=== PATIENT | female | born 1950 | race Caucasian/White ===

== ENCOUNTER 2023-04-19 18:13 | Inpatient (IN) ==
[2023-04-19] MEDS ORDERED: SODIUM CHLORIDE 1,000 ML IV STA (18:55)
--- NOTE | 2023-04-19 18:55 | ED.PDOC ---
General ED Provider: Dr. CHITRA PATEL MD Chief Complaint: Altered Mental Status Stated Complaint: Patient with history of Alzheimer's, type 2 diabetes, recently placed in a [facility] has had very poor oral intake the past 3 days. Patient has a history of fall yesterday and was eval emergency room for negative head CT scan. Patient has not been lethargic. No history of coughing, fever, nausea, vomiting. Family states that patient's had very poor urine output Time Seen by Provider: 04/19/23 18:54 Information Source: Patient Exam Limitations: Clinical condition, Dementia and Altered mental status Primary Care Provider: GREGOR IZQUIERDO Nursing and Triage Documentation Reviewed and Agree: Yes Review of Systems Review Of Systems Constitutional: Reports Weakness Eyes: Reports No symptoms Ears, Nose, Mouth, Throat: Reports No symptoms Respiratory: Reports No symptoms Cardiac: Reports No symptoms GI: Reports No symptoms : Reports No symptoms Musculoskeletal: Reports No symptoms Neurological: Reports Cognitive dysfunction and Weakness Endocrine: Reports No symptoms All Other Systems: Reviewed and Negative [facility] Medical History Type 2 diabetes mellitus without complications E11.9 - Type 2 diabetes mellitus without complications (ICD-10) Personal history of malignant neoplasm of breast Z85.3 - Personal history of malignant neoplasm of breast (ICD-10) Major depressive disorder, single episode, unspecified F32.9 - Major depressive disorder, single episode, unspecified (ICD-10) Dementia in other diseases classified elsewhere, severe, with other behavioral disturbance F02.C18 - Dementia in other diseases classified elsewhere, severe, with other behavioral disturbance (ICD-10) Anxiety disorder, unspecified F41.9 - Anxiety disorder, unspecified (ICD-10) Age-related physical debility R54 - Age-related physical debility (ICD-10) Repeated falls R29.6 - Repeated falls (ICD-10) 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9 - Gastro-esophageal reflux disease without esophagitis (ICD-10) History of seasonal allergies Z88.9 - Allergy status to unspecified drugs, medicaments and biological substances status (ICD-10) Surgical History Status post hysterectomy Z90.710 - Acquired absence of both cervix and uterus (ICD-10) Female Reproductive History Menstrual Hx Hysterectomy: Yes Hx Tubal Ligation: No Physical Exam Physical Exam Appearance: Reports Ill-appearing Ill-appearing: Mild Pain Distress: None Eyes: Reports JARAD and EOMI ENT: Reports Ears normal, Nose normal and Other (There is dry oral mucosa) Neck: Supple Respiratory: Reports Airway patent and Breath sounds clear Cardiovascular: Reports RRR and Tachycardia GI/: Reports Soft and Nontender Musculoskeletal: Reports Normal strength Skin: Reports Warm Neurological: Reports Sensation intact, Motor intact and Reflexes intact Psychiatric: Reports Affect appropriate, Mood appropriate and Not Examined (Patient appears lethargic but responds to verbal stimuli.) Interpretation EKG Interpretation EKG Interpretation By: ED Physician Time of EKG #1: 19:03 Rate: Normal Rhythm: Sinus Ectopy: None Interpretation: There is T wave inversion in inferior anterior septal laterally Radiology Interpretation Radiology Interpretation By: Radiologist Radiology Results: Negative Exam Interpreted: CXR Radiology Interpretation By: Radiologist Exam Interpreted: CT Scan Xray Comments: The head CT scan shows no acute intracranial abnormality Critical Care Note Critical Care Note Total Critical Care Time (mins): 0 Course Course 04/19/23 19:30 04/19/23 19:30 Orders, Labs, Meds: Lab Review 04/19/23 04/19/23 04/19/23 19:30 19:38 20:25 WBC 11.58 H RBC 5.32 Hgb 16.8 H Hct 49.3 H MCV 92.7 MCH 31.6 H MCHC 34.1 RDW Coeff of Jimbo 13.5 Plt Count 267 Immature Gran % (Auto) 0.8 Neut % (Auto) 80.0 H Lymph % (Auto) 14.9 [place] % (Auto) 3.8 Eos % (Auto) 0.1 Baso % (Auto) 0.4 Neut # (Auto) 9.3 H Lymph # (Auto) 1.7 [place] # (Auto) 0.4 Eos # (Auto) 0.0 Baso # (Auto) 0.1 Immature Gran # (Auto) 0.1 Sodium 138.4 Potassium 3.99 Chloride 101.3 Carbon Dioxide 18.0 L Anion Gap 23.09 BUN 18.0 H Creatinine 1.25 Estimated GFR (MDRD) 42.00 BUN/Creatinine Ratio 14.40 Glucose 214.5 H Calcium 10.72 H Magnesium 2.22 Total Bilirubin 1.35 H AST 37.4 H ALT 34.6 Alkaline Phosphatase 75.7 Troponin I < 0.012 Total Protein 9.69 H Albumin 5.18 H Globulin 4.51 Albumin/Globulin Ratio 1.14 Urine Color Dark Urine Clarity Clear Urine pH 6.0 Ur Specific [place] >=1.030 Urine Protein 3+ H Urine Glucose (UA) Negative Urine Ketones 3+ H Urine Blood Trace-intact H Urine Nitrite Negative Urine Bilirubin 2+ H Urine Urobilinogen 0.2 Ur Leukocyte Esterase Negative Urine Microscopic RBC 5-10 Urine Microscopic WBC 0-2 Ur Squamous Epith Cells Not present Ur Renal Epithelial Cell 0-2 Triple Phos Crystals Trace Amorphous Sediment Trace Urine Bacteria 1+ Hyaline Casts 5-10 Fine Granular Casts 2-5 Urine Yeast 2+ SARS CoV-2 RNA Rapid JOCE Negative Orders Category Date Time Status ADMIT PATIENT INPATIENT .TO [facility] (MONITORED BED) ADMISSION 04/19/23 21:23 Active EKG-(ED ONLY) Stat CARDIO 04/19/23 18:57 Completed ACCUCHECK (MED/SURG, SCU) [BLOOD GLUCOSE MONITORING ( CARE 04/19/23 21:23 Active MED/SURG)] Q4HR ACTIVITY .Up With Assistance CARE 04/19/23 21:23 Active INTAKE & OUTPUT Q8HR CARE 04/19/23 21:23 Active TELEMETRY MONITORING TELE CARE 04/19/23 21:23 Active VITAL SIGNS Q4HR CARE 04/19/23 21:24 Active NOTHING BY MOUTH DIETARY 04/20/23 Breakfast Ordered CBC W/ AUTO DIFF DAILY@0600 LAB 04/20/23 06:00 Ordered CBC W/ AUTO DIFF DAILY@0600 LAB 04/21/23 06:00 Ordered CBC W/ AUTO DIFF Stat LAB 04/19/23 19:30 Completed CMP [COMPREHENSIVE METABOLIC PANEL] Stat LAB 04/19/23 19:30 Completed COMPREHENSIVE METABOLIC PANEL DAILY@0600 LAB 04/20/23 06:00 Ordered COMPREHENSIVE METABOLIC PANEL DAILY@0600 LAB 04/21/23 06:00 Ordered COVID [SARS COV-2 RNA RAPID JOCE] Stat LAB 04/19/23 19:38 Completed MAGNESIUM Stat LAB 04/19/23 19:30 Completed TROPONIN I Stat LAB 04/19/23 19:30 Completed URINALYSIS C & S IF INDICATED Stat LAB 04/19/23 20:25 Completed URINE CULTURE Stat LAB 04/19/23 20:25 Received Acetaminophen [Tylenol] Meds 04/19/23 21:23 Ordered 650 mg PO Q4H PRN Dextrose 5 %-0.45 % NaCl [Dextrose 5%-1/2Ns IV Solution Meds 04/19/23 21:30 Ordered ] 1,000 ml IV 100 mls/hr Insulin Lispro [Humalog] Meds 04/19/23 21:23 Ordered See Protocol SUBCUT PRN PRN Ondansetron HCl/Pf [Zofran 4 mg/2 ml] Meds 04/19/23 21:23 Ordered 4 mg IVP Q6H PRN Sodium Chloride 0.9% [Sodium Chloride] 1,000 ml Meds 04/19/23 18:55 Discontinued IV BOLUS CHEST, 1V AP ONLY Stat RADS 04/19/23 18:[address] HEAD W/O CONTRAST Stat RADS 04/19/23 20:44 Completed Medications Generic Name Dose Route Start Last Admin Trade Name Freq PRN Reason Stop Dose Admin Acetaminophen 650 mg 04/19/23 21:23 Acetaminophen 325 Mg Tablet PO Q4H PRN Mild Pain Dextrose/Sodium Chloride 1,000 mls @ 100 mls/hr 04/19/23 21:30 Dextrose 5%-1/2ns Iv Solution IV .Q10H ALCIDES Insulin Human Lispro 0 unit 04/19/23 21:23 Insulin Lispro 100 Unit/Ml (3 Ml) Vial SUBCUT PRN PRN Hyperglycemia Protocol Ondansetron HCl 4 mg 04/19/23 21:23 Ondansetron Hcl/Pf 4 Mg/2 Ml Sdv IVP Q6H PRN Nausea / Vomiting Discontinued Medications Generic Name Dose Route Start Last Admin Trade Name Freq PRN Reason Stop Dose Admin Sodium Chloride 1,000 mls @ 500 mls/hr 04/19/23 18:55 04/19/23 20:12 Sodium Chloride IV 04/19/23 20:54 500 mls/hr BOLUS STA Administration Vital Signs: Temp Pulse Resp BP Pulse Ox 04/19/23 18:30 97.6 F 98 16 127/89 99 Discharge Plan Discharge Patient Disposition: ADMITTED INPATIENT Discharge Problem: Altered mental status, Acute dehydration Prescriptions: No Action donepezil 5 mg tablet 5 mg PO BEDTIME escitalopram oxalate 10 mg tablet 10 mg PO DAILY metformin 500 mg tablet 500 mg PO TID Januvia 50 mg tablet 50 mg PO DAILY trazodone 50 mg tablet 25 mg PO BEDTIME cholecalciferol (vitamin D3) 25 mcg (1,000 unit) capsule 25 mcg PO DAILY Trulicity 0.75 mg/0.5 mL pen injector 0.75 mg subcut WEEKLY Did you review [place] [employer] for ALL controlled substances?: No ED Provider: CHITRA PATEL Physician Progress Note: History obtained from the family and the patient. Patient recently [facility] has very poor oral intake has became lethargic throughout the day and has very poor feedings. Patient fell yesterday and was evaluated emergency room for negative head CT scan. Laboratory data today urinalysis with 3+ ketones, specific gravity 1.03, CBC with a white blood cell count of 11,500, hemoglobin 16.8, GFR today was 42 compared to GFR 53 yesterday. Urinalysis negative Patient given a liter bolus normal saline at 500 mL/h x 2. Discussed with hospitalist Gertrudis Doe at 2044 for inpatient admission Differential diagnosis: 1) altered mental status 2) dehydration []
[2023-04-19 19:34] LABS: BASOPHILS # (AUTO) 0.1 K/uL (0-0.2); BASOPHILS % (AUTO) 0.4 % (0.0-3.0); EOSINOPHILS % (AUTO) 0.1 % (0.0-7.0); HEMATOCRIT 49.3 % (37.0-47.0); HEMOGLOBIN 16.8 g/dl (12.0-16.0); IMMATURE GRANULOCYTE # (AUTO) 0.1 (0.0-1.0); IMMATURE GRANULOCYTE % (AUTO) 0.8 % (0.0-5.0); LYMPHOCYTES # (AUTO) 1.7 K/uL (0.60-3.4); LYMPHOCYTES % (AUTO) 14.9 (10.0-50.0); MEAN CORPUSCULAR HEMOGLOBIN 31.6 pg (27.0-31.0); MEAN CORPUSCULAR HGB CONC 34.1 (31.8-35.4); MEAN CORPUSCULAR VOLUME 92.7 fl (81.0-99.0); MONOCYTES # (AUTO) 0.4 K/uL (0.4-2.0); MONOCYTES % (AUTO) 3.8 (0-10); NEUTROPHILS # (AUTO) 9.3 K/ul (2.0-6.9); PLATELET COUNT 267 10^3/uL (140-440); RDW COEFFICIENT OF VARIATION 13.5 % (11.6-14.8); RED BLOOD COUNT 5.32 10^6/ul (4.20-5.40); WHITE BLOOD COUNT 11.58 K/ul (4.6-10.2)
[2023-04-19 19:46] LABS: ALANINE AMINOTRANSFERASE 34.6 U/L (0-35); ALBUMIN 5.18 g/dL (3.5-5.0); ALKALINE PHOSPHATASE 75.7 U/L (53-141); ASPARTATE AMINO TRANSFERASE 37.4 U/L (14-36); BILIRUBIN,TOTAL 1.35 mg/dL (0.2-1.3); CALCIUM 10.72 mg/dL (8.4-10.2); CHLORIDE 101.3 mmol/L (98-107); CREATININE 1.25 mg/dL (0.60-1.30); GLUCOSE 214.5 mg/dL (74-106); MAGNESIUM 2.22 mg/dL (1.6-2.3); POTASSIUM 3.99 mmol/L (3.5-5.1); SODIUM 138.4 mmol/L (134.5-145); TOTAL PROTEIN 9.69 g/dL (6.3-8.2)
[2023-04-19 19:58] LABS: TROPONIN I < 0.012 ng/ml (0.0000-0.120)
[2023-04-19 19:59] LABS: SARS COV-2 RNA RAPID NAAT NEGATIVE (NEGATIVE)
--- NOTE | 2023-04-19 20:09 | DI ---
EXAM: CHEST RADIOGRAPH (1 VIEW) TECHNIQUE: Frontal Chest Radiograph. HISTORY: Cough COMPARISON: None. FINDINGS: Lines, Tubes, Devices: None Lungs and Pleura: No focal consolidation. No pleural effusion. No pneumothorax. Cardiac silhouette: Normal. Bones: No acute abnormality. IMPRESSION: No acute radiographic abnormality. If symptoms persist, follow-up imaging is recommended.
[2023-04-19 20:30] LABS: BILIRUBIN,URINE 2+ (NEGATIVE); CLARITY,URINE Clear (CLEAR); COLOR,URINE Dark (YELLOW); GLUCOSE, URINE (UA) Negative (NEGATIVE); KETONES,URINE 3+ (NEGATIVE); LEUKOCYTE ESTERASE ,URINE Negative (NEGATIVE); NITRITE,URINE Negative (NEGATIVE); PROTEIN,URINE 3+ (NEGATIVE); URINE, BLOOD Trace-intact (NEGATIVE); UROBILINOGEN,URINE 0.2 (0.2)
[2023-04-19 20:32] LABS: SQUAMOUS EPITHELIAL CELL,UR NOT PRESENT (0-5)
[2023-04-19 20:46] LABS: AMORPHOUS SEDIMENT,UR TRACE (NOT PRESENT); BACTERIA,URINE 1+ (NOT PRESENT); RENAL EPITHELIAL CELLS,URINE 0-2 (NOT PRESENT); TRIPLE PHOSPHATE CRYSTAL,UR TRACE (NOT PRESENT); URINE WBC, MICROSCOPIC 0-2 (0-2); YEAST,URINE 2+ (NOT PRESENT)
--- NOTE | 2023-04-19 21:22 | CT ---
EXAMINATION: HEAD CT WITHOUT CONTRAST HISTORY: Altered mental status. TECHNIQUE: Noncontrast CT of the brain was performed with images acquired from skull base to vertex. 2-D coronal and sagittal reformatted images were obtained from the axial source images. Contrast Dose: None. CT Dose Reduction Techniques Performed: Yes. COMPARISON: 04/18/2023 FINDINGS: There is mild atrophy. There is chronic periventricular small vessel ischemic disease. There are no masses, mass effect or midline shift. There is no evidence for intracranial hemorrhage or acute cer ebral or cerebellar infarction. There are no extra-axial fluid collections or subdural hematomas. T here are no cerebral contusions and there are no skull fractures. The visualized portions of the para nasal sinuses and mastoid air cells are clear. IMPRESSION: 1. Atrophy and senescent changes. No acute intracranial pathology. All CT scans are performed using dose optimization techniques as appropriate to the performed exam an d include at least one of the following: Automated exposure control, adjustment of the mA and/or kV according t o size, and the use of iterative reconstruction technique.
[2023-04-19] MEDS ORDERED: HUMALOG SUBCUT PRN (21:23)
[2023-04-19] MEDS ORDERED: ZOFRAN 4 MG/2 ML IVP PRN (21:23)
[2023-04-19 22:12] LABS: VBG HCO3 19.4 (22-26); VBG OXYGEN SATURATION 94.9 (60-80); VBG PH 7.39 (7.30-7.40)
[2023-04-19] MEDS: DEXTROSE 5%-1/2NS IV SOLUTION 1,000 ML IV SCH (23:04)
[2023-04-19 23:43] VITALS: BMI 24.0
[2023-04-20 05:24] LABS: BASOPHILS % (AUTO) 0.2 % (0.0-3.0); EOSINOPHILS % (AUTO) 0.1 % (0.0-7.0); HEMATOCRIT 41.6 % (37.0-47.0); HEMOGLOBIN 13.8 g/dl (12.0-16.0); IMMATURE GRANULOCYTE # (AUTO) 0.1 (0.0-1.0); IMMATURE GRANULOCYTE % (AUTO) 0.6 % (0.0-5.0); LYMPHOCYTES # (AUTO) 2.5 K/uL (0.60-3.4); LYMPHOCYTES % (AUTO) 25.7 (10.0-50.0); MEAN CORPUSCULAR HEMOGLOBIN 32.2 pg (27.0-31.0); MEAN CORPUSCULAR HGB CONC 33.2 (31.8-35.4); MONOCYTES # (AUTO) 0.9 K/uL (0.4-2.0); MONOCYTES % (AUTO) 8.9 (0-10); NEUTROPHILS # (AUTO) 6.4 K/ul (2.0-6.9); NEUTROPHILS % (AUTO) 64.5 % (42.2-75.2); PLATELET COUNT 216 10^3/uL (140-440); RDW COEFFICIENT OF VARIATION 13.5 % (11.6-14.8); RED BLOOD COUNT 4.29 10^6/ul (4.20-5.40); WHITE BLOOD COUNT 9.87 K/ul (4.6-10.2)
[2023-04-20 05:47] LABS: ALANINE AMINOTRANSFERASE 24.7 U/L (0-35); ALBUMIN 4.16 g/dL (3.5-5.0); ALKALINE PHOSPHATASE 57.4 U/L (53-141); ASPARTATE AMINO TRANSFERASE 22.6 U/L (14-36); BILIRUBIN,TOTAL 1.05 mg/dL (0.2-1.3); BLOOD UREA NITROGEN 18.3 mg/dL (7-17); CALCIUM 9.44 mg/dL (8.4-10.2); CARBON DIOXIDE 19.5 mmol/L (22-30.0); CHLORIDE 107.8 mmol/L (98-107); CREATININE 0.95 mg/dL (0.60-1.30); GLUCOSE 140.7 mg/dL (74-106); POTASSIUM 3.29 mmol/L (3.5-5.1); SODIUM 136.7 mmol/L (134.5-145); TOTAL PROTEIN 7.33 g/dL (6.3-8.2)
--- NOTE | 2023-04-20 08:46 | PCM ---
Date of Service Date Seen by Provider: 04/20/23 Time Seen by Provider: 08:30 Admit Day/Time Admission Date: 04/19/23 Admission Time: 21:23 Reason for Admission Chief Complaint: ACUTE DEHYDRATION, [facility] Hospital Provider Hospital Provider: ER[facility] MATTHEWS [facility]-C, [facility] Primary Care Physician Primary Care Physician: GREGOR IZQUIERDO History of Present Illness History of Present Illness: Patient is a 73 [facility] female [facility] with pmhx of dementia, diabetes, depression who presents to the ER with altered mental status. On 04/18 patient had a ground level fall and hit her head. She was evaluated in the ER and had a negative CT. On 04/19 she was more confused than her usual, lethargic, not eating or drinking, and not talking much. Per ER nurse triage note patient had an episode of dizziness, nausea, and was very pale while ambulating to the bathroom per the [facility]. In the ER she was found to have bicarb mildly low at 18, 3+ ketones in urine, and very concentrated labs indicative of dehydration. CT head and CXR negative. UA does not indicate UTI. She was given fluids and admitted to [facility]. Of note patient was recently [facility] to the [facility] in early March. This morning patient is more alert but answers mostly yes or no to questions. She is oriented to self only. She denies nausea, vomiting, abd pain. Breakfast is at bedside untouched. Encouraged her to eat. She states she is just not hungry. Case Discussed With Case Discussed With: Patient's case was discussed with the ER Physicians, Dr. Katz. [facility] Medical History Type 2 diabetes mellitus without complications E11.9 - Type 2 diabetes mellitus without complications (ICD-10) Personal history of malignant neoplasm of breast Z85.3 - Personal history of malignant neoplasm of breast (ICD-10) Major depressive disorder, single episode, unspecified F32.9 - Major depressive disorder, single episode, unspecified (ICD-10) Dementia in other diseases classified elsewhere, severe, with other behavioral disturbance F02.C18 - Dementia in other diseases classified elsewhere, severe, with other behavioral disturbance (ICD-10) Anxiety disorder, unspecified F41.9 - Anxiety disorder, unspecified (ICD-10) Age-related physical debility R54 - Age-related physical debility (ICD-10) Repeated falls R29.6 - Repeated falls (ICD-10) 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9 - Gastro-esophageal reflux disease without esophagitis (ICD-10) History of seasonal allergies Z88.9 - Allergy status to unspecified drugs, medicaments and biological substances status (ICD-10) Surgical History History of mastectomy Right breast Z90.10 - Acquired absence of unspecified breast and nipple (ICD-10) Status post hysterectomy Z90.710 - Acquired absence of both cervix and uterus (ICD-10) Family History FATHER Dementia PATERNAL GRANDMOTHER Dementia Social History Smoking and tobacco status: Former smoker Tobacco: How many years used: 10 (Has not smoked in 40+ years) Alcohol intake: unknown Substance use type: does not use Tiarra/taoist: SCIENTOLOGIST Special tiarra needs: No Agree to transfusion: No Marital status: M Allergies Allergies Allergy/AdvReac Type Severity Reaction Status Date / Time No Known Allergies Allergy Verified 04/19/23 18:29 Current Medications Home Medications cholecalciferol (vitamin D3) 25 mcg (1,000 unit) capsule 25 mcg PO DAILY 04/18/23 [History Confirmed 04/20/23 Last Taken 04/19/23] donepezil 5 mg tablet 5 mg PO BEDTIME 04/18/23 [History Confirmed 04/19/23 Last Taken 04/18/23] dulaglutide 0.75 mg/0.5 mL subcutaneous pen injector (Trulicity) 0.75 mg subcut WEEKLY 04/18/23 [History Confirmed 04/20/23 Last Taken 04/17/23] escitalopram oxalate 10 mg tablet 10 mg PO DAILY 04/18/23 [History Confirmed 04/20/23 Last Taken 04/19/23] metformin 500 mg tablet 500 mg PO TID 04/18/23 [History Confirmed 04/20/23 Last Taken 04/19/23 16:00] sitagliptin phosphate 50 mg tablet (Januvia) 50 mg PO DAILY 04/18/23 [History Confirmed 04/20/23 Last Taken 04/19/23] trazodone 50 mg tablet 25 mg PO BEDTIME 04/18/23 [History Confirmed 04/20/23 Last Taken 04/18/23] escitalopram oxalate 10 mg tablet (Lexapro) 10 mg PO DAILY 04/20/23 [History Confirmed 04/20/23 Last Taken 04/19/23] Home Acetaminophen (Acetaminophen 325 Mg Tablet) 650 mg PO Q4H PRN PRN Reason: Mild Pain Donepezil HCl (Donepezil Hcl 10 Mg Tablet) 5 mg PO BEDTIME [facility] Enoxaparin Sodium (Enoxaparin Sodium 40 Mg/0.4 Ml Syr) 40 mg SUBCUT DAILY [facility] Last Admin: 04/20/23 09:18 Dose: 40 mg Escitalopram Oxalate (Escitalopram Oxalate 10 Mg Tablet) 20 mg PO DAILY [facility] Last Admin: 04/20/23 09:18 Dose: 20 mg Dextrose/Sodium Chloride (Dextrose 5%-1/2ns Iv Solution) 1,000 mls @ 100 mls/hr IV .Q10H [facility] Last Admin: 04/20/23 08:47 Dose: 100 mls/hr Insulin Human Lispro (Insulin Lispro 100 Unit/Ml (3 Ml) Vial) 0 unit SUBCUT PRN PRN; Protocol PRN Reason: Hyperglycemia Ondansetron HCl (Ondansetron Hcl/Pf 4 Mg/2 Ml Sdv) 4 mg IVP Q6H PRN PRN Reason: Nausea / Vomiting Trazodone HCl (Trazodone Hcl 50 Mg Tablet) 25 mg PO BEDTIME [facility] Discontinued Medications Sodium Chloride (Sodium Chloride) 1,000 mls @ 500 mls/hr IV BOLUS STA Stop: 04/19/23 20:54 Last Infusion: 04/19/23 22:04 Dose: Infused Potassium Chloride (Potassium Chloride 20 Meq Tab) 40 meq PO ONCE ONE Stop: 04/20/23 09:05 Last Admin: 04/20/23 09:18 Dose: 40 meq Review of Systems Constitutional: Reports Weakness and Loss of appetite; Denies Fever Head: Reports Normocephalic and Atraumatic Throat: Denies Sore Throat or Difficulty Swallowing Cardiovascular: Denies Chest pain, Chest Pressure or Edema Respiratory: Denies Cough or Shortness of air Gastrointestinal: Denies Nausea, Vomiting, Diarrhea or Abdominal pain Genitourinary: Denies Dysuria or Frequency Neurological: Reports Weakness Psychiatric: Reports Depression Physical examination Most Recent Vital Signs: Most Recent Vital Signs Temperature 98.8 F 04/20/23 05:31 Temperature Source Temporal Artery Scan 04/20/23 05:31 Temperature Source Infrared 04/19/23 18:30 Pulse Rate 66 04/20/23 05:31 Respiratory Rate 18 04/20/23 05:31 Blood Pressure 122/71 04/20/23 05:31 Blood Pressure Mean 88 04/20/23 05:31 Blood Pressure Left Arm 160/86 04/19/23 22:57 Blood Pressure Location Left Arm 04/20/23 05:31 Blood Pressure Position Supine 04/20/23 05:31 O2 Sat by Pulse Oximetry 96 04/20/23 05:31 Oxygen Delivery Method Room Air 04/20/23 05:31 Height 5 ft 2 in 04/19/23 22:57 Weight 131 lb 12.8 oz 04/19/23 22:57 Telemetry Type Remote Telemetry 04/20/23 07:00 Telemetry Monitoring Continues 04/20/23 07:00 Telemetry Heart Rate 66 04/20/23 07:00 EKG W[place] Interval 0.1 L 04/20/23 07:00 EKG QRS Interval 0.09 04/20/23 07:00 Telemetry Strip Reading SR 04/20/23 07:00 Appearance: Positive No Apparent Distress and Other (+Alert, oriented to self only ) Skin: Positive [place] and Warm; Negative Rashes or Good Turgor HEENT: Positive Normocephalic; Negative Oral Mucous Moist Neck: Positive Supple and Midline Trachea Chest/Lungs: Positive Clear to Auscultation Bilaterally; Negative Rales, Rhonci or Wheezes Heart: Positive RRR GI/: Positive Soft, Nontender, Bowel Sounds Normal and No Distention Extremities: Negative Edema Neurological: Positive Alert, Disorinted and Other (+generalized weakness) Psychiatric: Positive Other (Oriented to self only, answers other questions appropriately, follows basic commands. ); Negative Appropriate Affect (flat affect) Labs This Visit Labs This Visit: Labs This Visit 04/19/23 04/19/23 04/19/23 19:30 19:38 20:25 WBC 11.58 H RBC 5.32 Hgb 16.8 H Hct 49.3 H MCV 92.7 MCH 31.6 H MCHC 34.1 RDW Coeff of Jimbo 13.5 Plt Count 267 Immature Gran % (Auto) 0.8 Neut % (Auto) 80.0 H Lymph % (Auto) 14.9 [place] % (Auto) 3.8 Eos % (Auto) 0.1 Baso % (Auto) 0.4 Neut # (Auto) 9.3 H Lymph # (Auto) 1.7 [place] # (Auto) 0.4 Eos # (Auto) 0.0 Baso # (Auto) 0.1 Immature Gran # (Auto) 0.1 VBG pH VBG pCO2 VBG pO2 VBG HCO3 VBG O2 Saturation Sodium 138.4 Potassium 3.99 Chloride 101.3 Carbon Dioxide 18.0 L Anion Gap 23.09 BUN 18.0 H Creatinine 1.25 Estimated GFR (MDRD) 42.00 BUN/Creatinine Ratio 14.40 Glucose 214.5 H Calcium 10.72 H Magnesium 2.22 Total Bilirubin 1.35 H AST 37.4 H ALT 34.6 Alkaline Phosphatase 75.7 Troponin I < 0.012 Total Protein 9.69 H Albumin 5.18 H Globulin 4.51 Albumin/Globulin Ratio 1.14 Urine Color Dark Urine Clarity Clear Urine pH 6.0 Ur Specific Strong >=1.030 Urine Protein 3+ H Urine Glucose (UA) Negative Urine Ketones 3+ H Urine Blood Trace-intact H Urine Nitrite Negative Urine Bilirubin 2+ H Urine Urobilinogen 0.2 Ur Leukocyte Esterase Negative Urine Microscopic RBC 5-10 Urine Microscopic WBC 0-2 Ur Squamous Epith Cells Not present Ur Renal Epithelial Cell 0-2 Triple Phos Crystals Trace Amorphous Sediment Trace Urine Bacteria 1+ Hyaline Casts 5-10 Fine Granular Casts 2-5 Urine Yeast 2+ SARS CoV-2 RNA Rapid JOCE Negative 04/19/23 04/20/23 22:08 05:18 WBC 9.87 RBC 4.29 Hgb 13.8 D Hct 41.6 D MCV 97.0 MCH 32.2 H MCHC 33.2 RDW Coeff of Jimbo 13.5 Plt Count 216 Immature Gran % (Auto) 0.6 Neut % (Auto) 64.5 Lymph % (Auto) 25.7 [place] % (Auto) 8.9 Eos % (Auto) 0.1 Baso % (Auto) 0.2 Neut # (Auto) 6.4 Lymph # (Auto) 2.5 [place] # (Auto) 0.9 Eos # (Auto) 0.0 Baso # (Auto) 0.0 Immature Gran # (Auto) 0.1 VBG pH 7.39 VBG pCO2 32 L VBG pO2 76 H VBG HCO3 19.4 L VBG O2 Saturation 94.9 H Sodium 136.7 Potassium 3.29 L Chloride 107.8 H Carbon Dioxide 19.5 L Anion Gap 12.69 BUN 18.3 H Creatinine 0.95 Estimated GFR (MDRD) 57.00 BUN/Creatinine Ratio 19.26 Glucose 140.7 H D Calcium 9.44 Magnesium Total Bilirubin 1.05 AST 22.6 ALT 24.7 Alkaline Phosphatase 57.4 Troponin I Total Protein 7.33 Albumin 4.16 Globulin 3.17 Albumin/Globulin Ratio 1.31 Urine Color Urine Clarity Urine pH Ur Specific Strong Urine Protein Urine Glucose (UA) Urine Ketones Urine Blood Urine Nitrite Urine Bilirubin Urine Urobilinogen Ur Leukocyte Esterase Urine Microscopic RBC Urine Microscopic WBC Ur Squamous Epith Cells Ur Renal Epithelial Cell Triple Phos Crystals Amorphous Sediment Urine Bacteria Hyaline Casts Fine Granular Casts Urine Yeast SARS CoV-2 RNA Rapid JOCE Microbiology This Visit 04/19/23 20:25 Urine,Random Urine Culture - Preliminary Imaging Imaging: EXAMINATION: HEAD CT WITHOUT CONTRAST HISTORY: Altered mental status. TECHNIQUE: Noncontrast CT of the brain was performed with images acquired from skull base to vertex. 2-D coronal and sagittal reformatted images were obtained from the axial source images. Contrast Dose: None. CT Dose Reduction Techniques Performed: Yes. COMPARISON: 04/18/2023 FINDINGS: There is mild atrophy. There is chronic periventricular small vessel ischemic disease. There are no masses, mass effect or midline shift. There is no evidence for intracranial hemorrhage or acute cerebral or cerebellar infarction. There are no extra-axial fluid collections or subdural hematomas. There are no cerebral contusions and there are no skull fractures. The visualized portions of the paranasal sinuses and mastoid air cells are clear. IMPRESSION: 1. Atrophy and senescent changes. No acute intracranial pathology. EXAM: CHEST RADIOGRAPH (1 VIEW) TECHNIQUE: Frontal Chest Radiograph. HISTORY: Cough COMPARISON: None. FINDINGS: Lines, Tubes, Devices: None Lungs and Pleura: No focal consolidation. No pleural effusion. No pneumothorax. Cardiac silhouette: Normal. Bones: No acute abnormality IMPRESSION: No acute radiographic abnormality. If symptoms persist, follow-up imaging is recommended. Review Statement Review Statement: I have independently reviewed and interpreted the labs/EKGs/imaging that were ordered by the ER provider. I have reviewed all outside records that are available currently in our EMR including imaging/notes/labs from previous visits. Plan Plan: 1. Acute metabolic encephalopathy in setting of dehydration/poor intake - Improved today. Continue fluids, encourage eating/drinking. CT head and UA negative. 2. Dehydration/poor intake with ketosis - Suspect starvation ketoacidosis when bicarb was 12 on 04/18, however bicarb has improved and ph was normal. Glucose trending down slowly despite d5, continue d51/2NS at 100 ml/hr and cont accuchecks q6hrs. Hold diabetic meds. Encourage eating/drinking. 3. Hypokalemia - Replaced 4. Dementia - Continue home meds 5. DMT2 - Hold diabetic meds at this time, check a1c 6. Depression - Could be contributing to decreased intake, especially with recently being placed in [facility]. Will discuss with family increasing her antidepressant. DVT Prophylaxis: Lovenox Time Spent: Greater than 80 minutes spent with patient, 50% of the time spent with this patient was devoted to counseling and coordination of care. [facility] minutes spent discussing advance care planning. FULL CODE Admit to: Inpatient Discussed Plan of Care with Dr. Jamel Prince. Spoke with son/PORehan Adames. He states her baseline is typically in bed and answers questions, but not usually conversational. She can be ambulatory to bathroom and short distances, but he doesn't think she uses a walker or anything. He states she was recently [facility] in the [facility] but even before then she would go through phases of not eating or drinking and have to be hospitalized at [facility] for dehydration, this is not unusual for her. He states he thinks the lexapro and trazodone were fairly new additions to her medications. He agrees she likely has some depression that could be contributing. Medications Medication Orders: Medications Ordered Category Date Time Status Acetaminophen [Tylenol] Meds 04/19/23 21:23 Active 650 mg PO Q4H PRN Dextrose 5 %-0.45 % NaCl [Dextrose 5%-1/2Ns IV Solution Meds 04/19/23 21:30 Active ] 1,000 ml IV 100 mls/hr Insulin Lispro [Humalog] Meds 04/19/23 21:23 Active See Protocol SUBCUT PRN PRN Ondansetron HCl/Pf [Zofran 4 mg/2 ml] Meds 04/19/23 21:23 Active 4 mg IVP Q6H PRN
[2023-04-20] MEDS: DEXTROSE 5%-1/2NS IV SOLUTION 1,000 ML IV SCH ×2 (08:47→18:04)
[2023-04-20] MEDS ORDERED: K-DUR PO ONE (09:04)
[2023-04-20] MEDS: LOVENOX SUBCUT SCH (09:18)
[2023-04-20] MEDS: LEXAPRO PO SCH (09:18)
[2023-04-20] MEDS: DESYREL PO SCH (20:51)
[2023-04-20] MEDS: ARICEPT PO SCH (20:52)
[2023-04-21] MEDS: DEXTROSE 5%-1/2NS IV SOLUTION 1,000 ML IV SCH ×2 (03:42→13:37)
[2023-04-21 06:51] LABS: BASOPHILS % (AUTO) 0.3 % (0.0-3.0); EOSINOPHILS # (AUTO) 0.1 K/ul (0.0-0.7); EOSINOPHILS % (AUTO) 0.7 % (0.0-7.0); HEMATOCRIT 38.8 % (37.0-47.0); HEMOGLOBIN 13.2 g/dl (12.0-16.0); IMMATURE GRANULOCYTE # (AUTO) 0.1 (0.0-1.0); IMMATURE GRANULOCYTE % (AUTO) 0.7 % (0.0-5.0); LYMPHOCYTES # (AUTO) 2.4 K/uL (0.60-3.4); MEAN CORPUSCULAR HEMOGLOBIN 31.5 pg (27.0-31.0); MEAN CORPUSCULAR VOLUME 92.6 fl (81.0-99.0); MONOCYTES # (AUTO) 0.7 K/uL (0.4-2.0); MONOCYTES % (AUTO) 7.2 (0-10); NEUTROPHILS # (AUTO) 5.8 K/ul (2.0-6.9); NEUTROPHILS % (AUTO) 64.1 % (42.2-75.2); PLATELET COUNT 195 10^3/uL (140-440); RDW COEFFICIENT OF VARIATION 13.3 % (11.6-14.8); RED BLOOD COUNT 4.19 10^6/ul (4.20-5.40); WHITE BLOOD COUNT 9.01 K/ul (4.6-10.2)
[2023-04-21 07:05] LABS: ALANINE AMINOTRANSFERASE 25.9 U/L (0-35); ALBUMIN 3.67 g/dL (3.5-5.0); ALKALINE PHOSPHATASE 49.9 U/L (53-141); ASPARTATE AMINO TRANSFERASE 26.8 U/L (14-36); BILIRUBIN,TOTAL 1.1 mg/dL (0.2-1.3); BLOOD UREA NITROGEN 11.4 mg/dL (7-17); CALCIUM 8.64 mg/dL (8.4-10.2); CARBON DIOXIDE 20.1 mmol/L (22-30.0); CHLORIDE 107.1 mmol/L (98-107); CREATININE 0.97 mg/dL (0.60-1.30); GLUCOSE 141.9 mg/dL (74-106); POTASSIUM 3.2 mmol/L (3.5-5.1); SODIUM 134.1 mmol/L (134.5-145); TOTAL PROTEIN 6.67 g/dL (6.3-8.2)
[2023-04-21] MEDS: LOVENOX SUBCUT SCH (08:33)
[2023-04-21] MEDS: LEXAPRO PO SCH (08:33)
--- NOTE | 2023-04-21 10:44 | DCSUM ---
Admission Date Admission Date: 04/19/23 Discharge Date Discharge Date: 04/21/23 Admission Diagnosis Admission Diagnosis: 1. Acute metabolic encephalopathy in setting of dehydration/poor intake 2. Dehydration/poor intake with ketosis 3. Hypokalemia 4. Dementia 5. DMT2 6. Depression Discharge Diagnosis Discharge Diagnosis: 1. Acute metabolic encephalopathy in setting of dehydration/poor intake - Resolved, at baseline Dementia 2. Dehydration/poor intake with ketosis - Improved 3. Hypokalemia - Replaced 4. Dementia - Chronic, worsening 5. DMT2 - Chronic, stable 6. Depression - Chronic, stable Hospital Provider Hospital Provider: ELIZABETH WHITE, [facility] Primary Care Physician Primary Care Physician: GREGOR IZQUIERDO Summary of History and Physical Summary of History and Physical: Patient is a 73 year old female from long term with pmhx of dementia, diabetes, depression who presents to the ER with altered mental status. On 04/18 patient had a ground level fall and hit her head. She was evaluated in the ER and had a negative CT. On 04/19 she was more confused than her usual, lethargic, not eating or drinking, and not talking much. Per ER nurse triage note patient had an episode of dizziness, nausea, and was very pale while ambulating to the bathroom per the long term. In the ER she was found to have bicarb mildly low at 18, 3+ ketones in urine, and very concentrated labs indicative of dehydration. CT head and CXR negative. UA does not indicate UTI. She was given fluids and admitted to [facility]. Of note patient was recently admitted to the long term in early March. This morning patient is more alert but answers mostly yes or no to questions. She is oriented to self only. She denies nausea, vomiting, abd pain. Breakfast is at bedside untouched. Encouraged her to eat. She states she is just not hungry. Hospital Course Subjective: Patient was treated for dehydration with poor intake with ketosis. Bicarb was 12 on 04/18, bicarb improved but was still low. Glucose trended down slowly despite D5 fluids infusing. Has been receiving D5 1/2 NS@100mL/hr, accuchecks Q6H and held diabetic medications. She was found to be hypokalemic which was replaced. Due to advancing dementia, patient is unable to carry on consistent and meaninful conversation. Only answers yes or no questions and at times answers inappropriately. Will not eat or drink. Has not eaten during hospital stay. Intermittently incontinent from bowel and bladder and is unable to perform ADLs without significant assistance. YUKI Adames and other family members decided they would like to take patient home under hospice care so that patient can be comfortable at this point. Only medication change included her antidepressant dose. Recommend holding diabetes medications if patient is no longer eating. All other medications have not been changed and may be given up to family disgression. Appearance: No Apparent Distress and Alert HEENT: MMM and Supple CVS: No Murmur and No Rubs Abdomen: Soft, Non-Tender and No Distention Respiratory: No Dyspnea Extremities: No Edema Vital Signs: Most Recent Vital Signs Temperature 97.9 F 04/21/23 09:57 Temperature Source Tympanic 04/21/23 09:57 Temperature Source Infrared 04/19/23 18:30 Pulse Rate 60 04/21/23 09:57 Respiratory Rate 18 04/21/23 09:57 Blood Pressure 134/76 04/21/23 09:57 Blood Pressure Mean 95 04/21/23 09:57 Blood Pressure Left Arm 160/86 04/19/23 22:57 Blood Pressure Location Right Arm 04/21/23 09:57 Blood Pressure Position Sitting 04/21/23 09:57 O2 Sat by Pulse Oximetry 98 04/21/23 09:57 Oxygen Delivery Method Room Air 04/21/23 09:57 Height 5 ft 2 in 04/19/23 22:57 Weight 131 lb 12.8 oz 04/19/23 22:57 Telemetry Type Remote Telemetry 04/21/23 07:00 Telemetry Monitoring Continues 04/21/23 07:00 Telemetry Heart Rate 62 04/21/23 07:00 EKG [place] Interval 0.08 L 04/21/23 07:00 EKG QRS Interval 0.05 L 04/21/23 07:00 Telemetry Strip Reading SR 04/21/23 07:00 Lab Results Last 24 Hours: 04/21/23 06:40 WBC 9.01 RBC 4.19 L Hgb 13.2 Hct 38.8 MCV 92.6 MCH 31.5 H MCHC 34.0 RDW Coeff of Jimbo 13.3 Plt Count 195 Immature Gran % (Auto) 0.7 Neut % (Auto) 64.1 Lymph % (Auto) 27.0 [place] % (Auto) 7.2 Eos % (Auto) 0.7 Baso % (Auto) 0.3 Neut # (Auto) 5.8 Lymph # (Auto) 2.4 [place] # (Auto) 0.7 Eos # (Auto) 0.1 Baso # (Auto) 0.0 Immature Gran # (Auto) 0.1 Sodium 134.1 L Potassium 3.20 L Chloride 107.1 H Carbon Dioxide 20.1 L Anion Gap 10.10 BUN 11.4 Creatinine 0.97 Estimated GFR (MDRD) 56.00 BUN/Creatinine Ratio 11.75 Glucose 141.9 H Calcium 8.64 Total Bilirubin 1.10 AST 26.8 ALT 25.9 Alkaline Phosphatase 49.9 L Total Protein 6.67 Albumin 3.67 Globulin 3.00 Albumin/Globulin Ratio 1.22 Discharge Instructions Discharge Planning: Discharge Planning > 40 minutes If patient is discharged with left ventricular systolic dysfunction: NA Discharged with a beta parris? [] If no, why not? [] Discharged with an alyssa/arb? [] If no, why not? [] Diet as tolerated Activity as tolerated Hospice to assume care PCP follow-up as needed. Discharge Medications: Medications at Discharge (Home Meds & RX) cholecalciferol (vitamin D3) 25 mcg (1,000 unit) capsule 25 mcg PO DAILY 04/18/23 donepezil 5 mg tablet 5 mg PO BEDTIME 04/18/23 dulaglutide 0.75 mg/0.5 mL subcutaneous pen injector (Trulicity) 0.75 mg subcut WEEKLY 04/18/23 escitalopram oxalate 10 mg tablet 10 mg PO DAILY 04/18/23 metformin 500 mg tablet 500 mg PO TID 04/18/23 sitagliptin phosphate 50 mg tablet (Januvia) 50 mg PO DAILY 04/18/23 trazodone 50 mg tablet 25 mg PO BEDTIME 04/18/23 escitalopram oxalate 10 mg tablet (Lexapro) 10 mg PO DAILY 04/20/23 Discharge Plan Discharge Activity Restrictions/Additional Instructions: Diet as tolerated Activity as tolerated Hospice to assume care PCP follow-up as needed. Medication Changes: Take 2 lexapro 10 mg daily for total of 20 mg YOU HAVE BEEN REFERRED TO [facility]. THE PHONE NUMBER IS [phone]. PLEASE CALL ON MondayApril AND GIVE THEM A DAY AND TIME TO MEET YOU AT YOUR HOME FOR THE ADMISSION TO HOSPICE. RENALDO REPORTS TO CALL HER AT [phone] WELL. 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 Instructions: Dehydration (GEN), Alzheimer Disease (GEN) Care Plan Goals: Problem: Fluid Volume Deficit Goal: Maintain fluid and electrolyte balance Instructions: Monitor and maintain hydration status Follow fluid and dietary restrictions Patient Disposition: DISCHARGED TO HOSPICE -HOME Prescriptions: Continued donepezil 5 mg tablet 5 mg PO BEDTIME escitalopram oxalate 10 mg tablet 10 mg PO DAILY trazodone 50 mg tablet 25 mg PO BEDTIME cholecalciferol (vitamin D3) 25 mcg (1,000 unit) capsule 25 mcg PO DAILY Changed escitalopram oxalate [Lexapro] 10 mg tablet 20 mg PO DAILY Qty: 60 0RF Discontinued metformin 500 mg tablet 500 mg PO TID Januvia 50 mg tablet 50 mg PO DAILY Trulicity 0.75 mg/0.5 mL pen injector 0.75 mg subcut WEEKLY Did you review [place] [employer] [employer] for ALL controlled substances?: No Discussed opioids are addictive and Narcan is available by prescription or from pharmacy.: No Condition: Poor
--- NOTE | 2023-04-21 17:57 | PCM.PROG ---
Date/Time Seen Date Seen by Provider: 04/21/23 Time Seen by Provider: 08:30 Provider [facility] Chief Complaint Chief Complaint: ACUTE DEHYDRATION, AMS Subjective Subjective: Awake. Oriented to person at baseline. Continuing to refuse to eat and drink. Breakfast tray left untouched again today. Only answers yes or no questions. Unable to carry on intellectual conversation at this point. Objective Appearance: Positive No Apparent Distress Chest/Lungs: Positive Symmetrical With Equal Breath Sounds, Clear to Auscultation Bilaterally and Good Air Movement all 4 Lung Ernst Heart: Positive RRR and Pulses Normal GI/: Positive Soft, Nontender, Bowel Sounds Normal and No Distention Musculoskeletal: Positive Not Examined Neurological: Positive Sensation Intact, Motor intact, Alert and Disorinted Vital Signs Vital Signs: Vital Signs: Last 24 Hours 04/20/23 18:00 04/20/23 19:00 04/20/23 20:00 Temperature 97.9 F Temperature Source Oral Pulse Rate 62 Respiratory Rate 12 Blood Pressure 110/64 Blood Pressure Mean 79 Blood Pressure Location Right Arm Blood Pressure Position Supine O2 Sat by Pulse Oximetry 96 Oxygen Delivery Method Room Air Room Air Telemetry Type Remote Telemetry Telemetry Monitoring Continues Telemetry Heart Rate 60 EKG MA Interval 0.15 EKG QRS Interval 0.08 Telemetry Strip Reading SR 04/20/23 21:42 04/21/23 00:42 04/21/23 02:00 Temperature 98.6 F 98.7 F Temperature Source Temporal Artery Scan Temporal Artery Scan Pulse Rate 69 72 Respiratory Rate 18 19 Blood Pressure 128/72 130/70 Blood Pressure Mean 90 90 Blood Pressure Location Left Arm Left Arm Blood Pressure Position Supine Supine O2 Sat by Pulse Oximetry 97 98 Oxygen Delivery Method Room Air Room Air Telemetry Type Remote Telemetry Telemetry Monitoring Continues Telemetry Heart Rate 61 EKG MA Interval 0.17 EKG QRS Interval 0.09 Telemetry Strip Reading SR 04/21/23 05:41 04/21/23 07:00 04/21/23 08:00 Temperature 97.6 F Temperature Source Temporal Artery Scan Pulse Rate 70 Respiratory Rate 17 Blood Pressure 139/80 Blood Pressure Mean 99 Blood Pressure Location Left Arm Blood Pressure Position Supine O2 Sat by Pulse Oximetry 97 Oxygen Delivery Method Room Air Room Air Telemetry Type Remote Telemetry Telemetry Monitoring Continues Telemetry Heart Rate 62 EKG MA Interval 0.08 L EKG QRS Interval 0.05 L Telemetry Strip Reading SR 04/21/23 09:57 04/21/23 13:00 04/21/23 13:55 Temperature 97.9 F 97.1 F L Temperature Source Tympanic Tympanic Pulse Rate 60 66 Respiratory Rate 18 18 Blood Pressure 134/76 145/87 H Blood Pressure Mean 95 106 Blood Pressure Location Right Arm Right Arm Blood Pressure Position Sitting Supine O2 Sat by Pulse Oximetry 98 98 Oxygen Delivery Method Room Air Room Air Telemetry Type Remote Telemetry Telemetry Monitoring Continues Telemetry Heart Rate 60 EKG MA Interval 0.12 EKG QRS Interval 0.10 Telemetry Strip Reading SR WITH PAC 04/21/23 16:50 Temperature 97.8 F Temperature Source Tympanic Pulse Rate 58 L Respiratory Rate 97 H Blood Pressure 141/79 H Blood Pressure Mean 99 Blood Pressure Location Right Arm Blood Pressure Position Supine O2 Sat by Pulse Oximetry 97 Oxygen Delivery Method Room Air Telemetry Type Telemetry Monitoring Telemetry Heart Rate EKG MA Interval EKG QRS Interval Telemetry Strip Reading Lab Results Lab Results: Lab Results: Last 24 Hours 04/21/23 06:40 WBC 9.01 RBC 4.19 L Hgb 13.2 Hct 38.8 MCV 92.6 MCH 31.5 H MCHC 34.0 RDW Coeff of Jimbo 13.3 Plt Count 195 Immature Gran % (Auto) 0.7 Neut % (Auto) 64.1 Lymph % (Auto) 27.0 Motley % (Auto) 7.2 Eos % (Auto) 0.7 Baso % (Auto) 0.3 Neut # (Auto) 5.8 Lymph # (Auto) 2.4 Motley # (Auto) 0.7 Eos # (Auto) 0.1 Baso # (Auto) 0.0 Immature Gran # (Auto) 0.1 Sodium 134.1 L Potassium 3.20 L Chloride 107.1 H Carbon Dioxide 20.1 L Anion Gap 10.10 BUN 11.4 Creatinine 0.97 Estimated GFR (MDRD) 56.00 BUN/Creatinine Ratio 11.75 Glucose 141.9 H Calcium 8.64 Total Bilirubin 1.10 AST 26.8 ALT 25.9 Alkaline Phosphatase 49.9 L Total Protein 6.67 Albumin 3.67 Globulin 3.00 Albumin/Globulin Ratio 1.22 Additional Comments Additional Comments: I have independently reviewed and interpreted the labs/EKGs/imaging ordered during this hospital stay. I have reviewed outside records that are available in our EMR that pertain to medical stay including imaging/notes/labs from previous visits. Active Medications Active Medications: Medications Generic Name Dose Route Start Last Admin Trade Name Gagandeep PRN Reason Stop Dose Admin Acetaminophen 650 mg 04/19/23 21:23 Acetaminophen 325 Mg Tablet PO Q4H PRN Mild Pain Donepezil HCl 5 mg 04/20/23 21:00 04/20/23 20:52 Donepezil Hcl 10 Mg Tablet PO 5 mg BEDTIME ALCIDES Administration Enoxaparin Sodium 40 mg 04/20/23 09:00 04/21/23 08:33 Enoxaparin Sodium 40 Mg/0.4 Ml Syr SUBCUT 40 mg DAILY ALCIDES Administration Escitalopram Oxalate 20 mg 04/20/23 09:05 04/21/23 08:33 Escitalopram Oxalate 10 Mg Tablet PO 20 mg DAILY ALCIDES Administration Dextrose/Sodium Chloride 1,000 mls @ 100 mls/hr 04/19/23 21:30 04/21/23 13:37 Dextrose 5%-1/2ns Iv Solution IV 100 mls/hr .Q10H ALCIDES Administration Insulin Human Lispro 0 unit 04/19/23 21:23 Insulin Lispro 100 Unit/Ml (3 Ml) Vial SUBCUT PRN PRN Hyperglycemia Protocol Ondansetron HCl 4 mg 04/19/23 21:23 Ondansetron Hcl/Pf 4 Mg/2 Ml Sdv IVP Q6H PRN Nausea / Vomiting Trazodone HCl 25 mg 04/20/23 21:00 04/20/23 20:51 Trazodone Hcl 50 Mg Tablet PO 25 mg BEDTIME ALCIDES Administration Plan Plan: 1. Acute metabolic encephalopathy in setting of dehydration/poor intake - Mildly improved, more alert, Continue fluids, encourage eating/drinking. CT head and UA negative. 2. Dehydration/poor intake with ketosis - Suspect starvation ketoacidosis when bicarb was 12 on 04/18, however bicarb has improved and ph was normal. Glucose trending down slowly despite D5 1/2 NS@125mL/hr; stopping fluids due to family wishes of comfort measures only at this point 3. Comfort measures/Hospice - Morphine 2mg Q2H prn, Ativan 2 mg Q2H prn 4. Hypokalemia - Replaced 5. Dementia - Continue home meds 6. DMT2 - Hold diabetic meds at this time, check a1c 7. Depression - Could be contributing to decreased intake, especially with recently being placed in retirement. Will discuss with family increasing her antidepressant. DVT Prophylaxis: Lovenox Due to advancing dementia, patient is unable to carry on consistent and meaninful conversation. Only answers yes or no questions and at times answers inappropriately. Will not eat or drink. Has not eaten during hospital stay. Intermittently incontinent from bowel and bladder and is unable to perform ADLs without significant assistance. YUKI Adames and other family members decided they would like to take patient home under hospice care so that patient can be comfortable at this point. Hospice is unable to take patient today. States likely will be Monday. Family does not want patient to go back to retirement and is making arrangements to bring patient home on Monday. Review Statement Review Statement: I have personally discussed and reviewed the patient's visit/currently labs/imaging/decision making with Dr. Prince, my supervising attending. Greater that 50 minutes spent with patient, 50% of the time spent with this patient was devoted to counseling and coordination of care.
[2023-04-21] MEDS ORDERED: MORPHINE 2 MG/ML SYRINGE IVP PRN (17:59)
[2023-04-21] MEDS ORDERED: ATIVAN IVP PRN ×2 (17:59→18:31)
[2023-04-21] MEDS: ARICEPT PO SCH (20:23)
[2023-04-21] MEDS: DESYREL PO SCH (20:23)
[2023-04-22] MEDS: LEXAPRO PO SCH (08:13)
[2023-04-22] MEDS: TYLENOL PO PRN ×2 (08:27→13:55)
--- NOTE | 2023-04-22 09:41 | DCSUM ---
Admission Date Admission Date: 04/19/23 Discharge Date Discharge Date: 04/22/23 Admission Diagnosis Admission Diagnosis: 1. Acute metabolic encephalopathy in setting of dehydration/poor intake 2. Dehydration/poor intake with ketosis 3. Hypokalemia 4. Dementia 5. DMT2 6. Depression Discharge Diagnosis Discharge Diagnosis: 1. Acute metabolic encephalopathy in setting of dehydration/poor intake - Worsening 2. Dehydration/poor intake with ketosis - Worsening 3. Hypokalemia - Replaced 4. Dementia - Chronic, worsening 5. DMT2 - Chronic, hold meds due to no oral intake 6. Depression - Chronic, worsening Hospital Provider Hospital Provider: ELIZABETH WHITE, [facility] [place] Phys[place] Primary Care Physician: GREGOR IZQUIERDO Summary of History and Physical Summary of History and Physical: Patient is a 73 [facility] old female [facility] with pmhx of dementia, diabetes, depression who presents to the ER with altered mental status. On 04/18 patient had a ground level fall and hit her head. She was evaluated in the ER and had a negative CT. On 04/19 she was more confused than her usual, lethargic, not eating or drinking, and not talking much. Per ER nurse triage note patient had an episode of dizziness, nausea, and was very pale while ambulating to the bathroom per the [facility]. In the ER she was found to have bicarb mildly low at 18, 3+ ketones in urine, and very concentrated labs indicative of dehydration. CT head and CXR negative. UA does not indicate UTI. She was given fluids and admitted to [facility]. Of note patient was recently [facility] early March. This morning patient is more alert but answers mostly yes or no to questions. She is oriented to self only. She denies nausea, vomiting, abd pain. Breakfast is at bedside untouched. Encouraged her to eat. She states she is just not hungry. Hospital Course Subjective: Initially, patient was given D5 1/2 NS@125mL/hr for hydration. YUKI Adames discussed with family plan of care for patient. Determined that hospice is more appropriate due to rapid decline in mental capacity due to dementia. Patient has not eaten or drank well since being in the hospital. Has not been ambulatory and is continually getting weaker. She is only answering yes or no questions at this time. Hospice was contacted yesterday 04/21 and reported to therapeutic case manager that they would be unable to see patient until Monday. Stopped fluids last night and ordered pain medication prn. Spoke with daughter in room this am and hospice is able to come tomorrow 04/23 to see patient. Discharge home with family today. Discussed to not continue diabetic medications due to limited oral intake. May continue all other home medications if family desires. Appearance: No Apparent Distress HEENT: MMM and Supple CVS: No Murmur Abdomen: Soft, Non-Tender and No Distention Respiratory: No Dyspnea Extremities: No Edema Vital Signs: Most Recent Vital Signs Temperature 97.4 F L 04/22/23 05:01 Temperature Source Temporal Artery Scan 04/22/23 05:01 Temperature Source Infrared 04/19/23 18:30 Pulse Rate 70 04/22/23 05:01 Respiratory Rate 18 04/22/23 05:01 Blood Pressure 135/83 04/22/23 05:01 Blood Pressure Mean 100 04/22/23 05:01 Blood Pressure Left Arm 160/86 04/19/23 22:57 Blood Pressure Location Right Arm 04/22/23 05:01 Blood Pressure Position Supine 04/22/23 05:01 O2 Sat by Pulse Oximetry 96 04/22/23 05:01 Oxygen Delivery Method Room Air 04/22/23 05:01 Height 5 ft 2 in 04/19/23 22:57 Weight 131 lb 12.8 oz 04/19/23 22:57 Telemetry Type Remote Telemetry 04/22/23 01:00 Telemetry Monitoring Continues 04/22/23 01:00 Telemetry Heart Rate 70 04/22/23 01:00 EKG IN Interval 0.12 04/22/23 01:00 EKG QRS Interval 0.08 04/22/23 01:00 Telemetry Strip Reading SR 04/22/23 01:00 Discharge Instructions Discharge Planning: Discharge Planning > 40 minutes If patient is discharged with left ventricular systolic dysfunction: NA Discharged with a beta parris? [] If no, why not? [] Discharged with an alyssa/arb? [] If no, why not? [] Diet as tolerated Activity as tolerated Hospice to assume care PCP follow-up as needed. Medication Changes: Take 2 lexapro 10 mg daily for total of 20 mg Do not administer diabetic medications if no oral intake. Discharge Medications: Medications at Discharge (Home Meds & RX) cholecalciferol (vitamin D3) 25 mcg (1,000 unit) capsule 25 mcg PO DAILY 04/18/23 donepezil 5 mg tablet 5 mg PO BEDTIME 04/18/23 escitalopram oxalate 10 mg tablet 10 mg PO DAILY 04/18/23 trazodone 50 mg tablet 25 mg PO BEDTIME 04/18/23 escitalopram oxalate 10 mg tablet (Lexapro) 20 mg (2 x 10 mg) PO DAILY #60 tabs 04/21/23 Discharge Plan Discharge Discharge Orders: Discharge Patient (ONCE); Ordered 04/22/23 Ordered By: BRICE LADD Activity Restrictions/Additional Instructions: Diet as tolerated Activity as tolerated Hospice to assume care PCP follow-up as needed. Medication Changes: Take 2 lexapro 10 mg daily for total of 20 mg Do not administer diabetic medications if no oral intake. YOU HAVE BEEN REFERRED TO [facility]. THE PHONE NUMBER IS [phone]. PLEASE CALL ON MondayApril AND GIVE THEM A DAY AND TIME TO MEET YOU AT YOUR HOME FOR THE ADMISSION TO HOSPICE. RENALDO REPORTS TO CALL HER AT [phone] WELL. 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 Instructions: Dehydration (GEN), Alzheimer Disease (GEN) Care Plan Goals: Problem: Fluid Volume Deficit Goal: Maintain fluid and electrolyte balance Instructions: Monitor and maintain hydration status Follow fluid and dietary restrictions Patient Disposition: DISCHARGED TO HOSPICE -HOME Prescriptions: Continued donepezil 5 mg tablet 5 mg PO BEDTIME escitalopram oxalate 10 mg tablet 10 mg PO DAILY trazodone 50 mg tablet 25 mg PO BEDTIME cholecalciferol (vitamin D3) 25 mcg (1,000 unit) capsule 25 mcg PO DAILY Changed escitalopram oxalate [Lexapro] 10 mg tablet 20 mg PO DAILY Qty: 60 0RF Discontinued metformin 500 mg tablet 500 mg PO TID Januvia 50 mg tablet 50 mg PO DAILY Trulicity 0.75 mg/0.5 mL pen injector 0.75 mg subcut WEEKLY Did you review [place] STAFF PHYSICIAN for ALL controlled substances?: No Discussed opioids are addictive and Narcan is available by prescription or from pharmacy.: No Condition: Poor
[2023-04-22 13:43] VITALS: BP 144/84; PULSE 61; RESP 13; TEMP 97.3
== END 2023-04-22 14:10 | disposition hospice, home (50) | DRG 640 ==
LOC: ED 18:13 → MEDSURG B 21:40
PROVIDERS: ADMIT Hospitalist; ATTEND Nurse Practitioner Family
DX: E86.0 Dehydration; R63.8 Other symptoms and signs concerning food and fluid intake; E71.32 Disorders of ketone metabolism; Z20.822 Contact with and (suspected) exposure to COVID-19; F32.A Depression, unspecified; E11.9 Type 2 diabetes mellitus without complications; G93.41 Metabolic encephalopathy; R41.82 Altered mental status, unspecified; T73.0XXA Starvation, initial encounter; E87.6 Hypokalemia